=== PATIENT | female | born 1970 | race Caucasian/White ===

== ENCOUNTER 2023-10-10 21:10 | Inpatient (IN) | payer OTHER ==
[2023-10-10 21:15] VITALS: BMI 23.4
[2023-10-10] MEDS ORDERED: ONDANSETRON 4 MG/2 ML VIAL ONE (21:32)
[2023-10-10] MEDS ORDERED: KETOROLAC TROMETHAMINE 15 MG/ML VIAL ONE (21:32)
[2023-10-10] MEDS: SODIUM CHLORIDE 500 ML IV STA ×2 (21:51→23:02)
[2023-10-10] MEDS: KETOROLAC TROMETHAMINE 15 MG/ML VIAL IVPUSH ONE (21:51)
[2023-10-10] MEDS: ONDANSETRON 4 MG/2 ML VIAL IVPUSH ONE (21:51)
[2023-10-10 21:53] LABS: BASO % 0.5 % (0-2.0); EOS % 1.8 % (0-4.5); HEMATOCRIT 36.3 % (32.4-45.2); HEMOGLOBIN 12.3 GM/dL (10.7-15.3); LYMPH % 26.8 % (8-40); MCH 30.2 pg (25.7-33.7); MEAN PLT VOLUME 7.7 fl (7.5-11.1); NEUT % 65.9 % (42.8-82.8); PLATELET COUNT 298 10^3/uL (134-434); RBC 4.08 M/mm3 (3.60-5.2); RDW 14.3 % (11.6-15.6); WHITE BLOOD COUNT 9.5 K/mm3 (4.0-10.0)
[2023-10-10 22:12] LABS: POTASSIUM 3.9 mmol/L (3.5-5.1)
[2023-10-10 22:16] LABS: ALBUMIN 3.9 g/dl (3.4-5.0); BLOOD UREA NITROGEN 24.3 mg/dL (7-18)
[2023-10-10 22:19] LABS: CREATININE 1.3 mg/dL (0.55-1.3)
[2023-10-10 22:20] LABS: BILIRUBIN,TOTAL 0.3 mg/dL (0.2-1); TOT PROT 7.8 g/dl (6.4-8.2)
[2023-10-10] MEDS ORDERED: MORPHINE SULFATE 2 MG/ML SYRINGE ONE (22:36)
[2023-10-10] MEDS: morphine CARPU-JECT 2 MG/1 ML DISP.SYRIN IVPUSH ONE (23:02)
[2023-10-11 01:17] LABS: EPI CELLS 3 /uL (0-25.1); HYALINE CASTS 0 /uL (0-3.1); PH,URINE 5.5 (5.0-8.0); URINE APPEARANCE CLEAR; URINE BACTERIA 28 /uL (0-1359); URINE BILIRUBIN NEGATIVE (NEGATIVE); URINE COLOR YELLOW; URINE GLUCOSE (UA) NEGATIVE (NEGATIVE); URINE KETONE NEGATIVE (NEGATIVE); URINE LEUK ESTERASE NEGATIVE (NEGATIVE); URINE NITRITE NEGATIVE (NEGATIVE); URINE PROTEIN NEGATIVE (NEGATIVE); URINE RBC 10 /uL (0-23.9); URINE UROBILINOGEN 0.2 mg/dL (0.2-1.0); URINE WBC 4 /uL (0-25.8)
[2023-10-11] MEDS: LACTATED RINGERS SOLUTION 1,000 ML IV SCH (05:09)
[2023-10-11] MEDS: LISINOPRIL 20 MG TABLET PO ONE (15:21)
[2023-10-11] MEDS ORDERED: LISINOPRIL 20 MG TABLET PO SCH (19:30)
[2023-10-12] MEDS: ACETAMINOPHEN 1000 MG/100 ML BAG IVPB PRN (04:01)
[2023-10-12 09:33] LABS: HEMATOCRIT 35.4 % (32.4-45.2); HEMOGLOBIN 11.9 GM/dL (10.7-15.3); MCH 30.3 pg (25.7-33.7); MCHC 33.5 g/dl (32.0-36.0); MEAN CELL VOLUME 90.5 fl (80-96); MEAN PLT VOLUME 8.2 fl (7.5-11.1); PLATELET COUNT 282 10^3/uL (134-434); RBC 3.91 M/mm3 (3.60-5.2); RDW 14.4 % (11.6-15.6); WHITE BLOOD COUNT 7.5 K/mm3 (4.0-10.0)
[2023-10-12 09:43] LABS: INR 1.04 (0.83-1.09); PROTHROMBIN TIME (PATIENT) 11.7 SEC (9.7-13.0)
[2023-10-12 09:45] LABS: ACTIVATED PTT 35.7 SECONDS (25.2-36.5)
[2023-10-12 09:46] LABS: POTASSIUM 3.9 mmol/L (3.5-5.1)
[2023-10-12 09:52] LABS: CALCIUM 9.2 mg/dL (8.5-10.1)
[2023-10-12 09:53] LABS: ALBUMIN 3.3 g/dl (3.4-5.0); BLOOD UREA NITROGEN 9.8 mg/dL (7-18)
[2023-10-12 09:56] LABS: CREATININE 0.9 mg/dL (0.55-1.3)
[2023-10-12 09:57] LABS: BILIRUBIN,TOTAL 0.3 mg/dL (0.2-1); TOT PROT 6.5 g/dl (6.4-8.2)
[2023-10-12] MEDS: LISINOPRIL 20 MG TABLET PO SCH (10:19)
[2023-10-12] MEDS ORDERED: BUPIVACAINE HCL/PF 0.25% (2.5MG/ML) 10 ML VIAL ONE (11:29)
[2023-10-12] MEDS ORDERED: HEPARIN NA (PORCINE) 5,000 UNITS/ML 1ML VIAL ONE (11:29)
[2023-10-12] MEDS ORDERED: oxyCODONE HCL 5 MG TABLET PO PRN ×3 (11:53→15:11)
[2023-10-12] MEDS ORDERED: ONDANSETRON 4 MG/2 ML VIAL IVPUSH PRN ×2 (11:53→15:11)
[2023-10-12] MEDS ORDERED: PROPOFOL 20 ML ONE (11:57)
[2023-10-12] MEDS ORDERED: MIDAZOLAM HCL 2 MG/2 ML SINGLE DOSE VIAL ONE (11:57)
[2023-10-12] MEDS ORDERED: ROCURONIUM BROMIDE 50 MG/5 ML SYRINGE ONE (11:57)
[2023-10-12] MEDS ORDERED: LIDOCAINE HCL/PF 2% SDV 5ML VIAL ONE (11:57)
[2023-10-12] MEDS ORDERED: ONDANSETRON 4 MG/2 ML VIAL ONE (11:57)
[2023-10-12] MEDS ORDERED: DEXAMETHASONE SOD PHOSPHATE 4 MG/1 ML VIAL ONE ×2 (11:57→12:27)
[2023-10-12] MEDS ORDERED: SEVOFLURANE 250 ML BTL ONE (11:58)
[2023-10-12] MEDS ORDERED: cefOXitin SODIUM 2 GM VIAL (RESTRICTED TO ID) IVPB ONE (12:02)
[2023-10-12] MEDS ORDERED: ACETAMINOPHEN INJECTION 100 ML IVPB ONE (12:02)
[2023-10-12] MEDS: cefoTEtan DISODIUM 2 GM VIAL (RESTRICTED TO ID) IVPB ONE (12:31)
[2023-10-12] MEDS: BUPIVACAINE HCL/PF 0.25% (2.5MG/ML) 10 ML VIAL IJ ONE ×2 (12:40)
[2023-10-12] MEDS ORDERED: KETOROLAC TROMETHAMINE 30 MG/1 ML VIAL ONE (13:21)
[2023-10-12] MEDS ORDERED: NEOSTIGMINE METHYLSULFATE 0.5 MG/1 ML - 10 ML MDV ONE (13:41)
[2023-10-12] MEDS ORDERED: GLYCOPYRROLATE 0.2 MG/1 ML VIAL ONE (13:41)
[2023-10-12] MEDS: LACTATED RINGERS SOLUTION 1,000 ML IV SCH ×2 (14:55→22:07)
[2023-10-12] MEDS: ACETAMINOPHEN 1000 MG/100 ML BAG IVPB SCH (15:52)
[2023-10-12] MEDS: oxyCODONE HCL 5 MG TABLET PO PRN (17:07)
[2023-10-13 04:00] VITALS: RESP 18
[2023-10-13] MEDS: LISINOPRIL 20 MG TABLET PO SCH (09:54)
[2023-10-13] MEDS ORDERED: BENZOCAINE/MENTHOL 1 EACH LOZENGE MM PRN (12:34)
[2023-10-13 15:16] VITALS: BP 155/81; PULSE 65; TEMP 99.3
== END 2023-10-13 14:23 | disposition home or self-care (01) | DRG 263 ==
LOC: JER 21:10 → JERBED 10-11 03:05 → OBSVTOIN 10-11 03:05 → J8W 10-11 08:16
PROVIDERS: ADMIT Internal Medicine; ATTEND Nurse Practitioner Family
PROC: 8E0W4CZ Robotic Assisted Procedure of Trunk Region, Percutaneous Endoscopic Approach (ICD-10-PCS; 2023-10-12)
PROC: 0FT44ZZ Resection of Gallbladder, Percutaneous Endoscopic Approach (ICD-10-PCS; principal; 2023-10-12 12:30)
DX: K81.0 Acute cholecystitis (principal); I10 Essential (primary) hypertension; R10.11 Right upper quadrant pain; R11.2 Nausea with vomiting, unspecified
CPT/HCPCS: 36415; 74176-TC; 76705-TC; 80048; 80053; 81003; 83690; 84703; 85025; 85027; 85610; 85730; 86850; 86900; 86901; 88304-TC; 93005; 93010; 94010; 94760; 99285-25; J0131; J1644